=== PATIENT | female | born 1990 | race Caucasian/White ===

== ENCOUNTER 2017-01-07 19:05 | Outpatient (CLI) | payer MEDICAID ==
[2017-01-14] MEDS ORDERED: TUMS DPS500 MG PO (13:47)
[2017-01-14] MEDS ORDERED: PRENATAL VIT1 TAB PO (13:47)
[2017-01-14] MEDS ORDERED: COLACE-DPS100 MG PO (13:47)
[2017-01-14] MEDS ORDERED: PERCOCET 5 DPS1 TAB PO (13:47)
[2017-01-14] MEDS ORDERED: DULCOLAX-DPS10 MG PR (13:48)
[2017-01-14] MEDS ORDERED: NIPPLECREAM TP (13:48)
[2017-01-14] MEDS ORDERED: LAN-O-SOOTHE7 GM TP (13:48)
[2017-01-14] MEDS ORDERED: MOTRIN-DPS800 MG PO (13:48)
== END 2017-01-07 21:15 | disposition home or self-care (01) ==
LOC: 2LDRP 19:05 → BC 19:05 → 2LDRP 19:31 → BC 21:15
DX: O47.1 False labor at or after 37 completed weeks of gestation (principal); Z3A.42 42 weeks gestation of pregnancy

== ENCOUNTER 2017-01-09 18:30 | Inpatient (IN) | payer MEDICAID ==
[~2017-01-09] VITALS: Ht 154.9 cm; Wt 112.0 kg
--- NOTE | ~2017-01-09 | OR ---
ADMIT: 01/09/2017 RM/LOC: 222 [facility] MR#: [id number] [id number] [id number] MANJULA JIMENEZ [address] [place] [address] Operative/Delivery Room Report SEX: F AGE: 26 : 1990 SURGERY DATE: 01/10/2017 SURGEON: Stefani Mcpherson MD PREOPERATIVE DIAGNOSES: 1. Term intrauterine at 40-3/7th weeks. 2. Arrest of dilation. 3. Obesity. 4. Varicella non-immune. POSTOPERATIVE DIAGNOSES: 1. Term intrauterine at 40-3/7th weeks. 2. Arrest of dilation. 3. Obesity. 4. Varicella non-immune. PROCEDURE: Primary low transverse section. YARD CLEANER: Darya Angelo MD. ANESTHESIA: Epidural dosed for . ESTIMATED BLOOD LOSS: 500 mL. IV FLUIDS: 1100 mL of crystalloid. URINE OUTPUT: 350 mL. FINDINGS: Viable male infant, with scores of 8 and 9 and weight of 8 pounds 13.5 ounces. Intact placenta with three-vessel cord. Normal-appearing uterus and tubes and ovaries bilaterally. VTE PROPHYLAXIS: Sequential compression devices. ANTIBIOTICS: 2 g of Ancef prior to skin incision. INDICATIONS FOR PROCEDURE: This is a 26-year-old, G1, P0, who presented to Labor and Delivery at 40-2/7th weeks in active labor. She progressed from 3 cm to 5 cm and was augmented with Pitocin as well as AROM with clear fluid. However, over approximately 24 hours, no additional cervical change was noted. Risks, benefits, and alternatives of proceeding with primary low transverse section were discussed, the patient voiced understanding. This conversation was documented in her H and P. PROCEDURE IN DETAIL: The patient was taken back to the operating room, where epidural anesthesia was dosed. She was placed in dorsal supine positioning with a leftward tilt. She was prepped and draped in the usual sterile fashion. A time-out was performed. A Pfannenstiel incision was then made and carried down to the underlying fascia and fascia was then incised through the ADMIT: 01/09/2017 RM/LOC: 222 [facility] MR#: [id number] [address] MANJULA JIMENEZ Rajendra [address] [place] [id number] Operative/Delivery Room Report SEX: F AGE: 26 : 1990 midline. Fascial incision was then extended bilaterally today with Acosta scissors. Yao's x2 were placed on the superior aspect of the fascia and rectus muscles were dissected off the fascia. Any areas of bleeding were cauterized with Bovie and midline adhesions were taken down sharply with Acosta scissors. Yao's were then removed and replaced on the inferior fascial edge. Again, rectus muscles were then dissected off, the midline adhesions were taken down sharply with Acosta scissors. Peritoneum was then identified and entered bluntly. Dense peritoneal adhesions adhering the bladder to the anterior abdominal wall were taken down sharply with the Metzenbaum scissors. Bladder blade was then placed with good visualization of lower uterine segment. Bladder flap was then created with Metzenbaum scissors and Russians and then further developed digitally and bladder blade was then replaced. Clean scalpel was then used to make hysterotomy incision and extended. head was then grasped and noted to be in occiput posterior position. Head was flexed and brought to the level of the incision with gentle fundal pressure. Nuchal cord x1 was noted and reduced. The rest of the infant was then delivered. Delayed cord clamping was employed. Cord was then clamped and cut and handed to the awaiting nursing staff. Placenta then delivered with gentle traction. Uterus was then exteriorized and cleared of all remaining clots and debris. Hysterotomy incision was then closed using 0 Vicryl in a running locked fashion. A second layer of imbrication was placed and hemostasis was achieved. Posterior cul-de-sac was then irrigated and the uterus was returned to the abdomen. Paracolic gutters were then cleared of clots with a wet lap and again inspection of the uterine incision was hemostatic and there was no evidence of bleeding around the bladder or injury of the bladder. Rectus muscles were then inspected and any areas of bleeding were cauterized with Bovie. Fascia was then closed using 0 PDS on a loop from the left angle to the right angle. Subcutaneous tissue was then irrigated and 2-0 plain gut was used to approximate the subcutaneous tissue in a running fashion. Skin was closed with 4-0 Vicryl in subcuticular fashion. Sponge and instrument counts were correct x2. COMPLICATIONS: None. DISPOSITION: The patient is stable in recovery room. to nursery. Stefani Mcpherson MD/ yoseph JOB #: [id number] CC: Stefani Mcpherson MD, Attending Physician Stefani Mcpherson MD, Family Physician
--- NOTE | ~2017-01-09 | HP ---
ADMIT: 01/09/2017 RM/LOC: 222 [facility] MR#: [id number] [facility] [address] [place] [id number] MANJULA JIMENEZ [address] [place] [address] History and Physical SEX: F AGE: 26 : 1990 DATE OF SERVICE: HISTORY OF PRESENT ILLNESS: This is a 26-year-old, G1, P0, who presented to Labor and Delivery with an intrauterine at 40 and 2/7th weeks with complaints of regular painful contractions. Her is complicated by history of tobacco use that she has cut down significantly and quit during the . She did have chlamydia initially in and was subsequently treated, and she is also varicella nonimmune and is obese. Upon admission, the patient was found to have cervical change from fingertip to 3 cm, and she was admitted for labor. PAST MEDICAL HISTORY: Obesity, chlamydia infection during with a status post treatment and negative retesting. She has maternal varicella nonimmune and needs MMR . PAST SURGICAL HISTORY: Bronson teeth removed in October 2015. SOCIAL HISTORY: No tobacco. No alcohol. No drug use. She is in a relationship with her significant other, Kyle. She does use seatbelt. She did smoke daily and has quit during . ALLERGIES: NO KNOWN DRUG ALLERGIES. MEDICATIONS: vitamins daily and she takes ranitidine 150 mg twice daily. REVIEW OF SYSTEMS: The patient endorses pain with contractions. No loss of fluid or vaginal bleeding. She notes good movement. No fevers, chills, chest pain, shortness of breath, nausea, vomiting, diarrhea, or constipation. OB LABORATORY DATA: GBS was negative. Diabetes screen was 128 by 1 hour. Her last hemoglobin was 11.6 on 10/03/2016 and her platelets were normal at that time at 244. Gonorrhea and chlamydia most recent test was on 08/16/2016 and was negative. Her quad screen was normal. HIV was negative. Blood type is O positive. Antibody screen negative. Hepatitis B surface antigen negative. RPR is nonreactive. She is rubella immune. PHYSICAL EXAMINATION: VITAL SIGNS: Blood pressure is 92/46, pulse is 77, respirations 18, temperature is 98.1 degrees, heart tones 130, moderate variability, positive accelerations, no decelerations. [place] shows irregular contractions. Sterile cervical exam was 5, 75, -3. GENERAL: The patient is in no acute distress. HEART: Regular rate and rhythm. No murmurs, rubs, or gallops. LUNGS: Clear to auscultation bilaterally. ABDOMEN: Gravid. Estimated weight is 4400 g. Output sterile cervical exam was 5, 75, -3, AROM with clear fluid. IUPC placed. LOWER EXTREMITIES: +1 pedal edema. ASSESSMENT AND PLAN: This is a 26-year-old, G1, P0, with IUP at 40 and 12/19 ADMIT: 01/09/2017 RM/LOC: 222 [facility] MR#: [id number] [address] [place] [id number] [place] [address] History and Physical SEX: F AGE: 26 : 1990 weeks. 1. Admit to Labor and Delivery for labor management. She has been unchanged for several hours. We will start Pitocin per protocol. 2. She is GBS negative. 3. She is varicella nonimmune. She will need 2 doses of Varivax 6 weeks apart . Her blood type is Rh positive, and she is immune to rubella. Risks, benefits, and alternatives of delivery were discussed with the patient in great detail. She understands that the estimated weight by Edgar's on recent ultrasound, she does have a large baby. Did discuss with her that this increases the risk for needing a section due to arrest of dilation and arrest of descent. We feel that if she were to going to have a vaginal delivery, she is at risk for having a shoulder dystocia which could have temporary or permanent neurologic injury to the or even . The patient understands with a primary section, it does not completely eliminate the risk of injury. Discussed that because the estimated weight is not over 5000 g recommending section for the prevention of shoulder dystocia is not standard of care. The patient does understand she has the option to proceed with primary section. However, she would like to attempt vaginal delivery. The risks, benefits, and alternatives of section were discussed. The patient understands that she is not a good candidate for operative vaginal delivery and with the section risks include, but are not limited to, bleeding, infection, injury to surrounding structures, including the fetus, anesthesia complications, neurological injury. venous thromboembolism, and need for additional procedures or readmission. The patient voiced understanding and will sign consent if needed. Stefani Mcpherson MD/ yoseph JOB #: [id number] CC: Stefani Mcpherson MD, Attending Physician Stefani Mcpherson MD, Family Physician
[2017-01-14] MEDS ORDERED: COLACE-DPS100 MG PO (13:47)
[2017-01-14] MEDS ORDERED: PRENATAL VIT1 TAB PO (13:47)
[2017-01-14] MEDS ORDERED: TUMS DPS500 MG PO (13:47)
[2017-01-14] MEDS ORDERED: PERCOCET 5 DPS1 TAB PO (13:47)
[2017-01-14] MEDS ORDERED: NIPPLECREAM TP (13:48)
[2017-01-14] MEDS ORDERED: MOTRIN-DPS800 MG PO (13:48)
[2017-01-14] MEDS ORDERED: LAN-O-SOOTHE7 GM TP (13:48)
[2017-01-14] MEDS ORDERED: DULCOLAX-DPS10 MG PR (13:48)
--- NOTE | 2017-01-25 13:03 | DS ---
ADMIT: 01/09/2017 RM/LOC: 222 [facility] MR#: [id number] [address] [address] MANJULA JIMENEZ [address] [place] [address] Discharge Summary SEX: F AGE: 26 : 1990 ADMISSION DATE: 01/09/2017 DISCHARGE DATE: 01/13/2017 DIAGNOSES: 1. Term intrauterine at 40 and 3/7th weeks. 2. Arrest of dilation. 3. Obesity. 4. Varicella nonimmune. PROCEDURES PERFORMED DURING ADMISSION: Primary low transverse section. INDICATIONS FOR ADMISSION: This is a 26-year-old, G1, P0, who presented to Labor and Delivery at 40 and 2/7 weeks with complaints of regular contractions. She was found to be in active labor. She progressed very slowly to approximately 5 cm and then did receive approximately 24 hours of Pitocin without any cervical change. Arrest of dilation was noted, and she underwent primary low transverse section. She delivered a viable male infant with scores of 8 and 9 and a weight of 8 pounds 13.5 ounces. Her surgery was uncomplicated. Her postoperative course was uncomplicated. On postoperative day #1, her hemoglobin was 11.6. By postoperative day #2, she was meeting all of her milestones and desired to be discharged home. DISCHARGE MEDICATIONS: 1. Percocet 5/325, 1-2 tablets q.4 hours p.r.n. pain #30 no refills. 2. Motrin 800 mg 1 tablet every 8 hours p.r.n. pain #60 with 1 refill. 3. Tums OTC. 4. Dulcolax OTC. 5. She will continue her vitamin. She will follow up with Dr. Mcpherson in 2 weeks. Stefani Mcpherson MD/ mildred JOB #: [id number] CC: Stefani Mcpherson MD, Attending Physician Stefani Mcpherson MD, Family Physician
== END 2017-01-13 13:30 | disposition home or self-care (01) | DRG 765 ==
LOC: BC 18:30 → 2LDRP 18:30 → BC 19:03 → 2LDRP 19:58
PROC: 10907ZC Drainage of Amniotic Fluid, Therapeutic from Products of Conception, Via Natural or Artificial Opening (ICD-10-PCS; principal; 2017-01-10)
PROC: 10D00Z1 Extraction of Products of Conception, Low, Open Approach (ICD-10-PCS; principal; 2017-01-10)
DX: O48.0 Post-term pregnancy (principal); Z68.41 Body mass index [BMI] 40.0-44.9, adult; O62.0 Primary inadequate contractions; O99.214 Obesity complicating childbirth; E66.9 Obesity, unspecified; Z87.891 Personal history of nicotine dependence; Z28.3 Underimmunization status; Z3A.40 40 weeks gestation of pregnancy; Z37.0 Single live birth

== ENCOUNTER 2017-02-05 07:44 | Emergency (ER) | payer MEDICAID ==
[~2017-02-05 07:44] MED LIST: COLACE-DPS100 MG PO; DULCOLAX-DPS10 MG PR; LAN-O-SOOTHE7 GM TP; MOTRIN-DPS800 MG PO; NIPPLECREAM TP; PERCOCET 5 DPS1 TAB PO; PRENATAL VIT1 TAB PO; TUMS DPS500 MG PO
== END 2017-02-05 10:40 | disposition home or self-care (01) ==
DX: R10.9 Unspecified abdominal pain (principal); F17.210 Nicotine dependence, cigarettes, uncomplicated